=== PATIENT | female | born 1935 | race Caucasian/White ===

== ENCOUNTER 2025-01-22 09:34 | Inpatient (IN) | payer MEDICAID ==
[2025-01-22] VITALS (34 sets, daily range): BP systolic 121–169; BP diastolic 33–91
[~2025-01-22] VITALS: Ht 157.5 cm; Wt 71.6 kg
[2025-01-22] MEDS ORDERED: LISINOPRIL10 MG PO (09:50)
[2025-01-22] MEDS ORDERED: PRAVASTATIN20 MG PO (09:50)
[2025-01-22] MEDS ORDERED: ASPIRIN81 MG PO (09:50)
[2025-01-22] MEDS ORDERED: HUMULIN 70/30 K1 INJ (09:51)
[2025-01-22] MEDS ORDERED: DULOXETINE HCL30 MG (09:51)
[2025-01-22] MEDS ORDERED: NORVASC5 M1 PO (09:52)
[2025-01-22] MEDS ORDERED: MORPHINE SULFATE 4 MG/ML VIAL IV ONE ×2 (09:55→13:20)
[2025-01-22] MEDS ORDERED: diazePAM 10 MG/2 ML VIAL IV ONE (09:55)
[2025-01-22] MEDS ORDERED: ONDANSETRON HCl 4 MG/2 ML SDV IV ONE (09:55)
[2025-01-22 10:29] LABS: BASO% 0.3 % (0-3); EOS% 0.3 % (0-8); IMMATURE GRANULOCYTES 0.6 % (0.0-5.0); LYMPH% 12.7 % (15-41); MEAN CORPUSCULAR HGB 33.3 pG CALC (26.0-32.0); MEAN CORPUSCULAR HGB CONC 33.7 g/dL CAL (32.0-36.0); MONO% 5.8 % (2-13); NEUT# 12.66 thou/uL (2.00-7.15); NEUT% 80.3 % (42-76); RED BLOOD COUNT 1.98 mill/uL (4.20-5.60); RED CELL DISTRI WIDTH 14.7 % (11.5-15.5)
[2025-01-22 10:36] LABS: HEMATOCRIT 19.6 % (37.0-47.0); HEMOGLOBIN 6.6 g/dl (12.0-16.0)
[2025-01-22 10:51] LABS: ALBUMIN 3.7 g/dL (3.2-5.0); BILIRUBIN, TOTAL 0.5 mg/dL (0.02-1.3); CREATININE 1.4 mg/dL (0.5-1.0); POTASSIUM 4.3 mmol/l (3.5-5.1)
[2025-01-22 11:33] LABS: URINE BILIRUBIN - DIPSTICK Negative (NEGATIVE); URINE BLOOD DIPSTICK Negative (NEGATIVE); URINE GLUCOSE - DIPSTICK Negative (NEGATIVE); URINE KETONE Negative (NEGATIVE); URINE LEUK ESTERASE Negative (NEGATIVE); URINE NITRITE - DIPSTICK Negative (Negative); URINE PROTEIN - DIPSTICK Negative (NEG-TRACE); URINE UROBILINOGEN - DIPSTICK 0.2 E.U./dL (0.2)
[2025-01-22 11:53] LABS: URINE COLOR Yellow
[2025-01-22] MEDS ORDERED: SODIUM CHLORIDE 0.9% 1,000 ML IV ONE (13:20)
[2025-01-22] MEDS ORDERED: HYDROcodone 5 MG/Acetaminophen 325 MG/COMBO PO PRN (18:20)
[2025-01-22] MEDS ORDERED: DEXTROSE 50% 50 ML/SYR IV PRN (19:55)
[2025-01-22] MEDS ORDERED: DEXTROSE 250 ML IV PRN (19:55)
[2025-01-22] MEDS ORDERED: INSULIN LISPRO 100 UNITS/ML ML SC SCH (21:00)
[2025-01-23] VITALS (7 sets, daily range): BP systolic 126–146; BP diastolic 50–76
[2025-01-23 08:36] LABS: ALBUMIN 3.4 g/dL (3.2-5.0); BILIRUBIN, TOTAL 0.6 mg/dL (0.02-1.3); CREATININE 1.5 mg/dL (0.5-1.0); POTASSIUM 4.5 mmol/l (3.5-5.1); TOTAL PROTEIN 5.6 g/dL (6.3-8.2)
[2025-01-23 10:40] LABS: BASO% 0.5 % (0-3); EOS% 2.9 % (0-8); HEMOGLOBIN 8.5 g/dl (12.0-16.0); IMMATURE GRANULOCYTES 0.9 % (0.0-5.0); LYMPH% 21.8 % (15-41); MEAN CELL VOLUME 96.7 fL CALC (80.0-100.0); MEAN CORPUSCULAR HGB 31.5 pG CALC (26.0-32.0); MEAN CORPUSCULAR HGB CONC 32.6 g/dL CAL (32.0-36.0); NEUT# 5.32 thou/uL (2.00-7.15); NEUT% 64.9 % (42-76); RED BLOOD COUNT 2.7 mill/uL (4.20-5.60); RED CELL DISTRI WIDTH 15.6 % (11.5-15.5)
[2025-01-23 10:42] LABS: HEMATOCRIT 26.1 % (37.0-47.0)
[2025-01-23] MEDS ORDERED: MAGNESIUM CITRATE 296 ML/BTL PO SCH (11:00)
[2025-01-23] MEDS ORDERED: Peg 3350-POTASSIUM CHLORIDE-So 4,000 ML BTL PO SCH (12:00)
[2025-01-23] MEDS ORDERED: SODIUM CHLORIDE 0.9% 1,000 ML IV SCH (14:00)
[2025-01-24 04:51] VITALS: BP 158/52
[2025-01-24 05:17] LABS: BASO% 0.3 % (0-3); EOS% 4.3 % (0-8); HEMATOCRIT 24.5 % (37.0-47.0); HEMOGLOBIN 8.4 g/dl (12.0-16.0); IMMATURE GRANULOCYTES 0.7 % (0.0-5.0); LYMPH% 21.1 % (15-41); MEAN CELL VOLUME 95.7 fL CALC (80.0-100.0); MEAN CORPUSCULAR HGB 32.8 pG CALC (26.0-32.0); MEAN CORPUSCULAR HGB CONC 34.3 g/dL CAL (32.0-36.0); MONO% 8.7 % (2-13); NEUT# 4.48 thou/uL (2.00-7.15); NEUT% 64.9 % (42-76); RED BLOOD COUNT 2.56 mill/uL (4.20-5.60); RED CELL DISTRI WIDTH 15.1 % (11.5-15.5)
[2025-01-24 05:23] LABS: ALBUMIN 3.1 g/dL (3.2-5.0); BILIRUBIN, TOTAL 0.5 mg/dL (0.02-1.3); CREATININE 1.1 mg/dL (0.5-1.0); MAGNESIUM 2.1 mg/dL (1.6-2.3); POTASSIUM 4.2 mmol/l (3.5-5.1); TOTAL PROTEIN 5.4 g/dL (6.3-8.2)
[2025-01-24 05:49] VITALS: BP 152/51
[2025-01-24] MEDS ORDERED: Peg 3350-POTASSIUM CHLORIDE-So 4,000 ML BTL PO SCH (10:00)
[2025-01-24] MEDS ORDERED: amLODIPine BESYLATE 5 MG/TAB PO SCH (11:30)
[2025-01-24 16:32] VITALS: BP 185/66
[2025-01-24 18:56] VITALS: BP 115/55
[2025-01-24 21:00] VITALS: BP 159/51
[2025-01-25] VITALS (15 sets, daily range): BP systolic 142–174; BP diastolic 48–70
[2025-01-25 05:23] LABS: BASO% 0.1 % (0-3); BILIRUBIN, TOTAL 0.5 mg/dL (0.02-1.3); CREATININE 0.8 mg/dL (0.5-1.0); EOS% 4.7 % (0-8); HEMATOCRIT 23.7 % (37.0-47.0); HEMOGLOBIN 8.2 g/dl (12.0-16.0); IMMATURE GRANULOCYTES 0.4 % (0.0-5.0); LYMPH% 14.9 % (15-41); MAGNESIUM 1.8 mg/dL (1.6-2.3); MEAN CELL VOLUME 95.2 fL CALC (80.0-100.0); MEAN CORPUSCULAR HGB 32.9 pG CALC (26.0-32.0); MEAN CORPUSCULAR HGB CONC 34.6 g/dL CAL (32.0-36.0); MONO% 9.9 % (2-13); NEUT# 4.8 thou/uL (2.00-7.15); POTASSIUM 4.3 mmol/l (3.5-5.1); RED BLOOD COUNT 2.49 mill/uL (4.20-5.60); RED CELL DISTRI WIDTH 15.4 % (11.5-15.5); TOTAL PROTEIN 5.3 g/dL (6.3-8.2)
[2025-01-25] MEDS ORDERED: SODIUM CHLORIDE 0.9% 1,000 ML IV ONE (11:04)
[2025-01-25] MEDS ORDERED: Pantoprazole Sodium 40 MG VIAL (Protonix) IV SCH (11:30)
[2025-01-25] MEDS ORDERED: PROPOFOL 200 MG/20 ML VIAL IV ONE (11:44)
[2025-01-25] MEDS ORDERED: LIDOCAINE HCL 2% 2ML SDV IV ONE (11:44)
[2025-01-25] MEDS ORDERED: GLYCOPYRROLATE 0.2 MG/ML IV ONE (11:44)
[2025-01-26 04:23] VITALS: BP 159/49
[2025-01-26 06:07] LABS: BASO% 0.4 % (0-3); HEMATOCRIT 25.6 % (37.0-47.0); HEMOGLOBIN 8.8 g/dl (12.0-16.0); IMMATURE GRANULOCYTES 0.4 % (0.0-5.0); LYMPH% 19.5 % (15-41); MEAN CELL VOLUME 94.8 fL CALC (80.0-100.0); MEAN CORPUSCULAR HGB 32.6 pG CALC (26.0-32.0); MEAN CORPUSCULAR HGB CONC 34.4 g/dL CAL (32.0-36.0); MONO% 10.5 % (2-13); NEUT# 4.86 thou/uL (2.00-7.15); NEUT% 66.2 % (42-76); RED BLOOD COUNT 2.7 mill/uL (4.20-5.60); RED CELL DISTRI WIDTH 15.5 % (11.5-15.5)
[2025-01-26 06:12] LABS: ALBUMIN 3.2 g/dL (3.2-5.0); BILIRUBIN, TOTAL 0.4 mg/dL (0.02-1.3); CREATININE 0.8 mg/dL (0.5-1.0); MAGNESIUM 1.7 mg/dL (1.6-2.3); POTASSIUM 3.9 mmol/l (3.5-5.1); TOTAL PROTEIN 5.5 g/dL (6.3-8.2)
[2025-01-26 07:13] VITALS: BP 158/50
[2025-01-26 08:03] VITALS: BP 156/56
[2025-01-26] MEDS ORDERED: PROTONIX40 M2 PO (11:02)
[2025-01-26 11:09] VITALS: BP 188/65
[2025-01-26 11:20] VITALS: BP 164/56
[2025-01-26] MEDS ORDERED: LISINOPRIL 20 MG/TAB PO SCH (12:00)
[2025-01-26 12:24] VITALS: BP 164/56
== END 2025-01-26 12:31 | disposition home or self-care (01) | DRG 811 ==
LOC: ED 09:34 → ED-I 13:20 → ED 13:36 → MS2 13:37
PROVIDERS: Emergency Medicine; Internal Medicine; Nurse Practitioner Family; ADMIT Internal Medicine; ATTEND Internal Medicine
PROC: 30233N1 Transfusion of Nonautologous Red Blood Cells into Peripheral Vein, Percutaneous Approach (ICD-10-PCS; principal; 2025-01-22)
PROC: 30233N1 Transfusion of Nonautologous Red Blood Cells into Peripheral Vein, Percutaneous Approach (ICD-10-PCS; 2025-01-22)
PROC: 0DJD8ZZ Inspection of Lower Intestinal Tract, Via Natural or Artificial Opening Endoscopic (ICD-10-PCS; 2025-01-25)
PROC: 0DJ08ZZ Inspection of Upper Intestinal Tract, Via Natural or Artificial Opening Endoscopic (ICD-10-PCS; 2025-01-25)
DX: D62 Acute posthemorrhagic anemia (principal); K26.4 Chronic or unspecified duodenal ulcer with hemorrhage; K57.31 Diverticulosis of large intestine without perforation or abscess with bleeding; N17.9 Acute kidney failure, unspecified; I10 Essential (primary) hypertension; E11.9 Type 2 diabetes mellitus without complications; K64.8 Other hemorrhoids; E78.5 Hyperlipidemia, unspecified; M54.9 Dorsalgia, unspecified; G89.29 Other chronic pain; Z91.81 History of falling; Z79.4 Long term (current) use of insulin
CPT/HCPCS: J1596; J1815; J2405; J2470; J3360; P9016